=== PATIENT | female | born 1940 | race Caucasian/White ===

== ENCOUNTER 2016-08-21 10:57 | Day surgery (SDC) | payer MEDICARE ==
[~2016-08-21] VITALS: Ht 157.5 cm; Wt 69.4 kg
== END 2016-08-21 15:27 | disposition short-term general hospital (02) ==
LOC: SURGOP 10:57
PROC: 08RK3JZ Replacement of Left Lens with Synthetic Substitute, Percutaneous Approach (ICD-10-PCS; principal; 2016-08-21)
DX: Z96.1 Presence of intraocular lens (principal); H26.9 Unspecified cataract; I10 Essential (primary) hypertension; I25.10 Atherosclerotic heart disease of native coronary artery without angina pectoris; E78.5 Hyperlipidemia, unspecified; J44.9 Chronic obstructive pulmonary disease, unspecified; K21.9 Gastro-esophageal reflux disease without esophagitis; M19.90 Unspecified osteoarthritis, unspecified site; F17.210 Nicotine dependence, cigarettes, uncomplicated; Z88.8 Allergy status to other drugs, medicaments and biological substances; Z79.02 Long term (current) use of antithrombotics/antiplatelets; Z79.899 Other long term (current) drug therapy; Z95.1 Presence of aortocoronary bypass graft
CPT/HCPCS: J0171; J3473; V2632